=== PATIENT | male | born 1985 | race Caucasian/White ===

== ENCOUNTER 2020-07-20 19:49 | Emergency (ER) | payer OTHER ==
[~2020-07-20] VITALS: Ht 188 cm; Wt 154.5 kg
[2020-07-20 19:56] VITALS: Ht 188 cm; Wt 154.5 kg
[2020-07-20] MEDS ORDERED: LISINOPRIL20 MG PO (19:57)
[2020-07-20] MEDS ORDERED: XANAX1 MG PO (19:58)
[2020-07-20] MEDS ORDERED: LOVASTATIN40 MG PO (19:58)
[2020-07-20] MEDS ORDERED: PENICILLIN V P500 MG PO (19:59)
[2020-07-20] MEDS ORDERED: IBUPROFEN600 MG PO (19:59)
[2020-07-20] MEDS ORDERED: TYLENOL W/CODEI1 TAB PO (20:00)
[2020-07-20 20:37] LABS: BASOPHILS 0.2 % (0-2); EOSINOPHILS 3.4 % (0-7); HEMATOCRIT 46.2 % (42.0-54.0); HEMOGLOBIN 15.7 g/dL (13.5-17.5); IMMATURE GRANULOCYTES 0.4 % (0-5); LYMPHOCYTES 16.4 % (15-50); MCH 29.9 pg (26.0-34.0); MEAN PLATELET VOLUME 10.4 fL (7.4-10.4); MONOCYTES 9.5 % (2-11); NEUTROPHILS 70.1 % (40-80); PLATELET COUNT 297 10x3/uL (130-400); RBC 5.25 10x6/uL (4.20-6.10); RDW 13.3 % (11.5-14.5); WBC 15.1 10x3/uL (4.8-10.8)
[2020-07-20 20:49] LABS: CALC OSMOLALITY 277 mosm/kg (275-300); CALCIUM 9.8 mg/dL (8.5-10.1); CARBON DIOXIDE 29.9 mmol/L (21.0-32.0); CHLORIDE - SERUM 102 mmol/L (98-107); GLUCOSE 93 mg/dL (74-106); POTASSIUM - SERUM 4.5 mmol/L (3.5-5.1); SODIUM 139 mmol/L (136-145); UREA NITROGEN 13 mg/dL (7-18); eGFR NON AFRICAN AMERICAN 90 mL/min (90-120)
[2020-07-20 20:56] LABS: ALKALINE PHOSPHATASE 77 U/L (30-120); ALT (SGPT) 21 U/L (10-68); BILIRUBIN - TOTAL 0.24 mg/dL (0.2-1.3); PROTEIN - SERUM 7.7 g/dL (6.4-8.2)
[2020-07-20] MEDS ORDERED: HYDROCODON-ACE1 EAC7 PO (23:05)
[2020-07-20] MEDS ORDERED: CLEOCIN HCL300 MG PO (23:05)
[2020-07-20 23:33] VITALS: BP 170/90
== END 2020-07-20 23:33 | disposition home or self-care (01) ==
LOC: D.ER 19:49
PROVIDERS: Family Medicine
DX: K04.7 Periapical abscess without sinus (principal); K08.89 Other specified disorders of teeth and supporting structures; D72.829 Elevated white blood cell count, unspecified; R68.84 Jaw pain; I10 Essential (primary) hypertension; Z72.0 Tobacco use